=== PATIENT | male | born 1975 | race Caucasian/White ===

== ENCOUNTER 2016-10-07 11:53 | Emergency (ER) | payer BC ==
[2016-10-07] MEDS ORDERED: LEXAPRO PO (12:02)
== END 2016-10-07 12:11 | disposition left against medical advice (07) ==
LOC: SED 11:53
DX: T40.1X1A Poisoning by heroin, accidental (unintentional), initial encounter (principal); F17.200 Nicotine dependence, unspecified, uncomplicated; Z79.899 Other long term (current) drug therapy
CPT/HCPCS: 99282

== ENCOUNTER 2017-02-12 15:22 | Emergency (ER) | payer OTHER ==
[~2017-02-12] VITALS: Ht 182.9 cm; Wt 99.8 kg
[~2017-02-12 15:22] MED LIST: LEXAPRO PO
== END 2017-02-12 18:00 | disposition home or self-care (01) ==
LOC: CFTX 15:22 → CED 15:22 → CFTX 17:49
DX: M54.41 Lumbago with sciatica, right side (principal); F17.200 Nicotine dependence, unspecified, uncomplicated; Z79.899 Other long term (current) drug therapy
CPT/HCPCS: 96372; 99283; J1885